=== PATIENT | female | born 1940 | race Caucasian/White ===

== ENCOUNTER 2017-02-19 11:38 | Emergency (ER) | payer OTHER, MEDICARE | END 2017-02-19 12:27 | disposition home or self-care (01) | LOC: CFTX 11:38 → CED 11:38 → CFTX 12:00 | DX: S05.02XA Injury of conjunctiva and corneal abrasion without foreign body, left eye, initial encounter (principal); I10 Essential (primary) hypertension; W22.8XXA Striking against or struck by other objects, initial encounter | CPT/HCPCS: 99283 ==